=== PATIENT | male | born 1965 | race Caucasian/White ===

== ENCOUNTER 2019-08-10 19:01 | Emergency (ER) | payer OTHER ==
[~2019-08-10] VITALS: Ht 170.1 cm; Wt 85.7 kg
[2019-08-10] MEDS ORDERED: KEFLEX500 M1 PO (21:01)
== END 2019-08-10 21:17 | disposition home or self-care (01) ==
LOC: ED 19:01
DX: L72.3 Sebaceous cyst (principal)

== ENCOUNTER 2023-04-07 08:47 | Emergency (ER) | payer OTHER ==
[~2023-04-07] VITALS: Ht 170.1 cm; Wt 72.6 kg
[~2023-04-07 08:47] MED LIST: KEFLEX500 M1 PO
[2023-04-07 09:38] LABS: BASO # 0.1 10*3/uL (0.0-0.1); BASO % 0.6 % (0.0-1.0); EOS # 0.2 10*3/uL (0.0-0.4); EOS % 1.7 % (1.0-4.0); HEMATOCRIT 44.9 % (42.0-52.0); LYMPH % 16.5 % (27.0-41.0); MEAN CELL VOLUME 86.5 fl (80.0-94.0); MEAN CORPUSCULAR HGB 28.5 pg (27.0-31.0); MONO # 0.7 10*3/uL (0.1-1.0); MONO % 6.1 % (3.0-9.0); NEUT % 74.8 % (47.0-73.0); PLATELET COUNT AUTOMATED 247 10*3/uL (130-400); RED BLOOD COUNT 5.19 10*6/uL (4.50-5.90); RED CELL DISTRI WIDTH 12.6 % (0-14.5); WHITE BLOOD COUNT 12.1 10*3/uL (4.8-10.8)
[2023-04-07 09:50] LABS: ACT PARTIAL THROMBO TIME 26.7 SECONDS (20.0-32.1)
[2023-04-07 10:03] LABS: ALKALINE PHOSPHATASE 85 U/L (46-116); BUN 30 mg/dl (9-23); CHLORIDE 103 mmol/L (98-107); POTASSIUM 3.9 mmol/L (3.4-5.1); SGPT/ALT 15 U/L (5-49)
[2023-04-07] MEDS ORDERED: VIBRAMYCIN100 MG PO (11:57)
== END 2023-04-07 12:01 | disposition home or self-care (01) ==
LOC: ED 08:47
PROVIDERS: Family Medicine
DX: R51.9 Headache, unspecified (principal); A69.20 Lyme disease, unspecified; R53.83 Other fatigue; Z20.822 Contact with and (suspected) exposure to COVID-19; R10.2 Pelvic and perineal pain